=== PATIENT | male | born 2000 | race Caucasian/White ===

== ENCOUNTER 2022-06-13 18:15 | Emergency (ER) | payer BC, SELFPAY ==
[2022-06-13 18:38] VITALS: BP 114/66; PULSE 93; RESP 18; TEMP 37.2; O2SAT 97; BMI 20.2
--- NOTE | 2022-06-13 18:43 | CRLHL7_ITS ---
For Patients: As a result of the Cures Act, medical imaging exams and procedure reports are released immediately into your electronic medical record. You may view this report before your referring provider. If you have questions, please contact your health care provider. Indication: Injury. Technique: Right ankle, 3 views. Comparison: None. Findings: Bones: Alignment is normal. No fractures or bone lesions. Joint spaces: Unremarkable. Soft tissues: Unremarkable. Impression: No sign of acute injury. Dictated by Susanna Barreto MD @ 06/13/2022 7:18:50 PM (Electronically Signed)
--- NOTE | 2022-06-13 20:03 | ED.LOWEXIN ---
HPI - Extremity Injury (Lower) General Chief Complaint: Extremity Pain/Injury, Lower Stated Complaint: Right Ankle Sprain or Break Time Seen by Provider: 06/13/22 19:53 History of Present Illness HPI Narrative: Pt is a 21 year old who was playing [employer] when he twisted his right ankle. He has pain over the lateral aspect of the ankle but no other injuries. Pain is moderate. Pt can bear weight but arrives on crutches. Swelling localized to lateral ankle. No echymosis. No fever or chills. Pt has iced the extremity but no other interventions. Related Data Home Medications Medication Instructions Recorded Confirmed No Known Home Medications 06/13/22 06/13/22 Allergies Allergy/AdvReac Type Severity Reaction Status Date / Time No Known Drug Allergies Allergy Verified 06/13/22 18:42 Review of Systems Status of ROS: Reports: 10 or more systems reviewed and unremarkable except as noted in History and below [facility] Medical History No significant past medical history Surgical History No significant past surgical history Social History Smoking Status: Never smoker Do you use any of these nicotine containing products: None Second hand tobacco smoke exposure: No How often do you have a drink containing alcohol: never How often do you have six or more drinks on one occasion: Never AUDIT-C Alcohol total score: 0 Non-prescribed substance use: denies use Exam Narrative: Exam Narrative: EXAM GENERAL: Patient appears comfortable and well. EYES: No scleral icterus. ENT: Tympanic membranes and oropharynx normal. THYROID: no thyroid nodules or thyromegaly. LYMPH: No supraclavicular or cervical lymphadenopathy. SKIN: Visible skin seen during exam normal or with benign process only. EXT: Minimal pain on the lateral aspect of the right ankle. No bruising. HEART: Regular rate and rhythm with no murmurs, rubs, or gallops. LUNGS: Clear to auscultation bilaterally with no crackles or wheezes. ABD: Soft, non tender, non distended. PSYCH: Good eye contact, speech is not pressured. Const: Vital Signs, click to edit/add: Vital Signs - 24 hr 06/13/22 18:38 Temperature 98.9 F Pulse Rate [Right Pulse Oximeter] 93 Respiratory Rate 18 Blood Pressure [Ri ght Upper Arm] 114/66 Pulse Oximetry 97 Oxygen Delivery Me thod Room Air Course Course Hospital Course: Pt seen and examined. Vital Signs Vital signs: Initial Vital Signs Temperature 98.9 F 06/13/22 18:38 Temperature Source Temporal Artery Scan 06/13/22 18:38 Pulse Rate 93 06/13/22 18:38 Respiratory Rate 18 06/13/22 18:38 Blood Pressure 114/66 06/13/22 18:38 Blood Pressure Mean 82 06/13/22 18:38 Blood Pressure Position Sitting 06/13/22 18:38 Pulse Oximetry 97 06/13/22 18:38 Oxygen Delivery Method 06/13/22 18:38 Vital Signs Temperature 98.9 F 06/13/22 18:38 Pulse Rate 93 06/13/22 18:38 Respiratory Rate 18 06/13/22 18:38 Blood Pressure 114/66 06/13/22 18:38 Pulse Oximetry 97 06/13/22 18:38 Oxygen Delivery Method 06/13/22 18:38 Temperature 98.9 F 06/13/22 18:38 Pulse Rate 93 06/13/22 18:38 Respiratory Rate 18 06/13/22 18:38 Blood Pressure 114/66 06/13/22 18:38 Pulse Oximetry 97 06/13/22 18:38 Oxygen Delivery Method 06/13/22 18:38 MDM - Extremity Injury (Lower) MDM Narrative Medical decision making narrative: Pt presents with an acute ankle injury. No fracture or other injury. X ray negative. Pt will be treated for ankle sprain with Rest Ice Compression and Elevation. Follow up with PCP prn. Differential Diagnosis Differential diagnosis: Likely ankle sprain and strain, acute internal derangement of knee, fracture of femur, fracture of toe and ankle fracture Discharge Plan Discharge Clinical Impression: Ankle sprain and strain Patient Disposition: Home, Self-Care Condition: Stable Instructions: Ankle Sprain (ED) Additional Instructions: Rest Ice Compression Elevation Tylenol Motrin Activity Level: Activity as Tolerated Discharge Diet: Regular Prescriptions: No Action No Known Home Medications Stand Alone Forms: MyHealth Info Instructions
[2022-06-13 20:15] VITALS: BP 114/66; PULSE 93; RESP 18; TEMP 37.2; O2SAT 97
== END 2022-06-13 20:16 | disposition home or self-care (01) ==
PROVIDERS: Emergency Provider Internal Medicine
DX: S93.401A Sprain of unspecified ligament of right ankle, initial encounter (principal); S96.911A Strain of unspecified muscle and tendon at ankle and foot level, right foot, initial encounter; X50.1XXA Overexertion from prolonged static or awkward postures, initial encounter; Y93.69 Activity, other involving other sports and athletics played as a team or group; Y92.328 Other athletic field as the place of occurrence of the external cause; Y99.8 Other external cause status
CPT/HCPCS: 73610; 99283